=== PATIENT | female | born 1970 | race Hispanic/Latino ===

== ENCOUNTER → 2018-11-06 | Outpatient (CLI) | payer MEDICARE | END | disposition home or self-care (01) | LOC: RAH 14:38 | PROVIDERS: ATTEND Physical Medicine & Rehabilitation | DX: M54.12 Radiculopathy, cervical region (principal) | CPT/HCPCS: 72052 ==

== ENCOUNTER → 2019-05-21 | Outpatient (CLI) | payer MEDICARE | END | disposition home or self-care (01) | LOC: RAH 08:10 | PROVIDERS: ATTEND Physical Medicine & Rehabilitation | DX: M54.12 Radiculopathy, cervical region (principal) | CPT/HCPCS: 72141 ==

== ENCOUNTER → 2020-10-21 | Outpatient (CLI) | payer OTHER, MEDICARE | END | disposition home or self-care (01) | LOC: RAH 07:35 | PROVIDERS: ATTEND Physical Medicine & Rehabilitation | DX: G96.191 Perineural cyst (principal); M54.16 Radiculopathy, lumbar region | CPT/HCPCS: 72148 ==

== ENCOUNTER → 2020-12-23 | Outpatient (CLI) | payer OTHER, MEDICARE ==
[~2020-12-23] VITALS: Ht 165.1 cm; Wt 68.5 kg
[~2020-12-23] MED LIST: CEFAZOLIN SODIUM 1 GM VIAL IVP SCH
[2020-12-23 12:17] LABS: CREATININE 0.8 mg/dL (0.5-1.5); POTASSIUM 4.1 mmol/L (3.5-5.1)
[2020-12-30 09:15] VITALS: BP 99/55
== END ==
LOC: DAH 10:00 → EDSTATUS 01-14 07:30
PROVIDERS: ATTEND Neurological Surgery
DX: Z01.818 Encounter for other preprocedural examination (principal); G56.01 Carpal tunnel syndrome, right upper limb; Z20.822 Contact with and (suspected) exposure to COVID-19
CPT/HCPCS: 36415; 80048; A6260; C9803; U0003

== ENCOUNTER 2021-01-14 05:51 | Day surgery (SDC) | payer OTHER, MEDICARE ==
[2021-01-13 13:36] VITALS: BP 100/68
[~2021-01-14] VITALS: Ht 167.6 cm; Wt 68.0 kg
[2021-01-14] VITALS (11 sets, daily range): BP systolic 88–109; BP diastolic 51–72
[~2021-01-14 05:51] MED LIST changes: +AMIT25TA9 PO; +ASPI-1443 PO; +BUPR1PAT20 TD; +BUTA-256 PO; +CALC0.253 PO; -CEFAZOLIN SODIUM 1 GM VIAL IVP SCH; +CORTSOL OT; +CYCL10TA7 PO; +DIPH1TAB24 PO; +FENO135C4 PO; +FEXO-59 PO; +FLUTICASONE PROPION NASAL; +GLUC1AUT2 SQ; +HYDR-4068 PO; +INSNOV SQ; +INSU300I3 SQ; +LEVO150C4 PO; +METF-446 PO; +MIDO5TAB4 PO; +ONDA-104 PO; +OZEMPIC SQ; +PREG150C46 PO; +SERT-439 PO; +SIMV-46 PO; +TOPI50TA24 PO; +TRAZ150T79 PO; +albuterol sulfate IH
[2021-01-14] MEDS ORDERED: CEFAZOLIN SODIUM 1 GM VIAL ONE (06:09)
[2021-01-14] MEDS ORDERED: LACTATED RINGERS 1000ML 0 ML IV ONE (06:09)
[2021-01-14] MEDS ORDERED: SODIUM CHLORIDE 0.9% 1000ML 1,000 ML IV ONE (06:09)
[2021-01-14] MEDS: CEFAZOLIN SODIUM 1 GM VIAL IVP ONE ×2 (06:53→07:55)
[2021-01-14] MEDS ORDERED: LIDOCAINE HCL MDV 0.5% 50ML VIAL IJ ONE (07:36)
[2021-01-14] MEDS ORDERED: LIDOCAINE PF 100MG/5ML (2%) SYRINGE 5ML ONE (07:37)
[2021-01-14] MEDS ORDERED: FENTANYL CITRATE PF 50 MCG/1 ML 2ML VIAL ONE (07:38)
[2021-01-14] MEDS ORDERED: MIDAZOLAM HCL 1 MG/ML 2ML VIAL ONE (07:38)
[2021-01-14] MEDS ORDERED: PROPOFOL 10 MG/ML 20ML VIAL IV ONE (07:38)
[2021-01-14] MEDS ORDERED: EPHEDRINE SULFATE 50 MG/ML AMPULE ONE (08:00)
== END 2021-01-14 09:35 | disposition home or self-care (01) ==
LOC: DAH 05:51
PROVIDERS: ATTEND Neurological Surgery
DX: G56.01 Carpal tunnel syndrome, right upper limb (principal); Z20.822 Contact with and (suspected) exposure to COVID-19; J44.9 Chronic obstructive pulmonary disease, unspecified; E03.9 Hypothyroidism, unspecified; E11.9 Type 2 diabetes mellitus without complications; Z79.899 Other long term (current) drug therapy; Z90.89 Acquired absence of other organs; Z98.890 Other specified postprocedural states
CPT/HCPCS: 64721; 82948 ×2; 87635; A4215; A4216; A4221; A4222; A4223 ×2; A4606; A4663; C9803; J0690; J2001; J2250; J2704; J3010; J3490 ×2; J7030; J7120

== ENCOUNTER 2021-05-27 05:45 | Day surgery (SDC) | payer OTHER, MEDICARE ==
[2021-05-25 15:13] LABS: CREATININE 0.8 mg/dL (0.5-1.5); POTASSIUM 4.1 mmol/L (3.5-5.1)
[2021-05-26 09:28] VITALS: BP 140/60
[~2021-05-27] VITALS: Ht 165.1 cm; Wt 71.5 kg
[2021-05-27] VITALS (13 sets, daily range): BP systolic 90–127; BP diastolic 57–86
[~2021-05-27 05:45] MED LIST changes: -ASPI-1443 PO; -BUPR1PAT20 TD; -CORTSOL OT; -DIPH1TAB24 PO; +FENT-77 TD; -FEXO-59 PO; -GLUC1AUT2 SQ; -INSNOV SQ; +INSU100I15 SQ; -METF-446 PO; -ONDA-104 PO
[2021-05-27] MEDS: CEFAZOLIN SODIUM 1 GM VIAL IVP SCH ×2 (06:00→07:30)
[2021-05-27] MEDS ORDERED: LACTATED RINGERS 1000ML 1,000 ML IV ONE (06:10)
[2021-05-27] MEDS ORDERED: MIDAZOLAM HCL 1 MG/ML 2ML VIAL ONE (06:35)
[2021-05-27] MEDS ORDERED: FENTANYL CITRATE PF 50 MCG/1 ML 2ML VIAL ONE ×2 (06:35→07:30)
[2021-05-27] MEDS ORDERED: PROPOFOL 10 MG/ML 20ML VIAL IV ONE (07:03)
[2021-05-27] MEDS ORDERED: KETOROLAC 30MG VIAL (30MG/ML) ONE (08:13)
== END 2021-05-27 09:30 | disposition home or self-care (01) ==
LOC: DAH 05:45
PROVIDERS: ATTEND Neurological Surgery
DX: G56.02 Carpal tunnel syndrome, left upper limb (principal); Z20.822 Contact with and (suspected) exposure to COVID-19; E11.9 Type 2 diabetes mellitus without complications; E89.0 Postprocedural hypothyroidism
CPT/HCPCS: 36415; 64721; 80048; 82948 ×2; 87635; A4215; A4221; A4222; A4223; A4663; A6260; C9803; J0690; J1885; J2250; J2704; J3010 ×2; J7120

== ENCOUNTER → 2021-11-12 | Outpatient (CLI) | payer OTHER, MEDICARE ==
[~2021-11-12] MED LIST changes: +CYCL-309 PO; -CYCL10TA7 PO
== END | disposition home or self-care (01) ==
LOC: RAH 12:48
PROVIDERS: ATTEND Physical Medicine & Rehabilitation
DX: M25.421 Effusion, right elbow (principal); M79.89 Other specified soft tissue disorders; M25.521 Pain in right elbow
CPT/HCPCS: 73221

== ENCOUNTER 2022-03-16 05:30 | Day surgery (SDC) | payer OTHER, MEDICARE ==
[2022-03-15 15:26] VITALS: BP 106/73
[2022-03-15 15:34] LABS: BASOPHILS % (AUTO) 0.2 % (0.0-5.0); HEMATOCRIT 36.1 % (36-48); LYMPHOCYTES % (AUTO) 9.2 % (21.0-51.0); MEAN CORPUSCULAR HEMOGLOBIN 30.2 pg (27.0-33.0); MEAN CORPUSCULAR HGB CONC 33.2 g/dL (32.0-36.0); MEAN CORPUSCULAR VOLUME 90.9 fL (79-99); MONOCYTES % (AUTO) 1.2 % (3.0-13.0); NEUTROPHILS % (AUTO) 89.2 % (40.0-77.0); PLATELET COUNT (AUTO) 242 K/uL (130-400); RED BLOOD CELL COUNT(AUTO) 3.97 MIL/uL (4.00-5.50); RED CELL DISTRIBUTION WIDTH 14.5 % (11.0-15.5); WHITE BLOOD COUNT (AUTO) 4.3 K/uL (4.8-10.8)
[2022-03-15 15:40] LABS: POTASSIUM 3.9 mmol/L (3.5-5.1)
[2022-03-16] VITALS (15 sets, daily range): BP systolic 92–130; BP diastolic 53–66
[~2022-03-16] VITALS: Ht 165.1 cm; Wt 65.4 kg
[~2022-03-16 05:30] MED LIST changes: -BUTA-256 PO; -INSU100I15 SQ; -MIDO5TAB4 PO; -albuterol sulfate IH
[2022-03-16] MEDS ORDERED: CEFAZOLIN SODIUM 1 GM VIAL IVP SCH (06:00)
[2022-03-16] MEDS ORDERED: 0.9%NACL 1000ML 1,000 ML IV ONE (06:12)
[2022-03-16] MEDS ORDERED: METF500S9 PO (06:42)
[2022-03-16] MEDS ORDERED: MIDAZOLAM HCL 1 MG/ML 2ML VIAL ONE ×2 (06:51→07:37)
[2022-03-16] MEDS ORDERED: DEXAMETHASONE SOD PHOSPHATE 10MG/ML 1ML VIAL ONE ×2 (06:51→07:51)
[2022-03-16] MEDS ORDERED: SUCCINYLCHOLINE CHLORIDE 20 MG/ML 10 ML VIAL ONE (06:51)
[2022-03-16] MEDS ORDERED: PROPOFOL 10 MG/ML 20ML VIAL IV ONE (06:51)
[2022-03-16] MEDS ORDERED: GLYCOPYRROLATE 1 MG/5 ML SYRINGE ONE (06:51)
[2022-03-16] MEDS ORDERED: LIDOCAINE PF 100MG/5ML (2%) SYRINGE 5ML ONE (06:51)
[2022-03-16] MEDS ORDERED: ROCURONIUM 10MG/1ML SYR 10 MG/ML ML ONE (06:52)
[2022-03-16] MEDS ORDERED: ONDANSETRON 4MG INJ ONE (06:52)
[2022-03-16] MEDS ORDERED: NEOSTIGMINE 5MG/5ML SYR IV ONE (06:52)
[2022-03-16] MEDS ORDERED: FENTANYL CITRATE PF 50 MCG/1 ML 2ML VIAL ONE (06:53)
[2022-03-16] MEDS ORDERED: LIDOCAINE HCL 1% 10 ML VIAL ONE (06:58)
[2022-03-16] MEDS ORDERED: OXYMETAZOLINE HCL SPRAY 15 ML BOTTLE ONE (07:52)
[2022-03-16] MEDS ORDERED: BUPIVACAINE/EPI/PF 0.25% 10ML VIAL IJ ONE (07:56)
[2022-03-16] MEDS ORDERED: PHENYLEPHRINE HCL 10 MG/ML 1ML VIAL IV ONE (08:00)
[2022-03-16] MEDS ORDERED: BUPIVACAINE/EPI/PF 0.25% 30ML VIAL IJ ONE (08:03)
[2022-03-16] MEDS ORDERED: MEPERIDINE-PF 25 MG/ML SYG ONE (08:52)
[2022-03-16] MEDS ORDERED: HYDROMORPHONE 1 MG INJ ONE ×2 (09:18→09:41)
== END 2022-03-16 11:15 | disposition home or self-care (01) ==
LOC: DAH 05:30
PROVIDERS: ATTEND Neurological Surgery
DX: G56.21 Lesion of ulnar nerve, right upper limb (principal); M25.521 Pain in right elbow; E11.9 Type 2 diabetes mellitus without complications; J44.9 Chronic obstructive pulmonary disease, unspecified; F17.200 Nicotine dependence, unspecified, uncomplicated; Z79.890 Hormone replacement therapy; Z79.899 Other long term (current) drug therapy
CPT/HCPCS: 80051; 85025; 87426; 36415; 93005; 64718; 24999; 82948; 71045; A4663; C1713; A4649 ×2; J3010; J0690; J1170 ×2; J1642; J3490 ×4; J1100 ×2; J2710; J0330; J7030; J2001; J2250 ×2; J2704; J2405; J2175; J2370; A4215; A4223; A4222; A4221

== ENCOUNTER → 2025-03-26 | Outpatient (CLI) | payer OTHER, MEDICARE ==
[~2025-03-26] MED LIST changes: +AMIT25TA21 PO; -AMIT25TA9 PO; -LEVO150C4 PO; +LEVO150C5 PO; +METF500S9 PO; -PREG150C46 PO; +PREG150C47 PO; +TOPI-97 PO; -TOPI50TA24 PO
--- NOTE | 2025-03-26 23:25 | HMCIMG ---
EXAM: CR left Knee, 3 views. CLINICAL HISTORY: Left knee pain COMPARISON: None provided. FINDINGS: No acute fracture or aggressive appearing osseous lesion. Joint spaces are within normal limits. There is no joint effusion appreciated. The soft tissues are unremarkable. IMPRESSION: No acute osseous abnormality. /[place]
--- NOTE | 2025-03-26 23:25 | HMCIMG ---
EXAM: CR Right Shoulder, 3 views. CLINICAL HISTORY: Pain in the right shoulder. COMPARISON: None provided. FINDINGS: Mild degenerative changes in the right acromioclavicular joint. The glenohumeral joint appears unremarkable. No acute fracture or aggressive appearing osseous lesion. The soft tissues are unremarkable. Right-sided port catheter with tip in the region of the cavoatrial junction. IMPRESSION: No acute bony changes.Mild degenerative changes in the right acromioclavicular joint. /[place]
== END | disposition home or self-care (01) ==
LOC: RAH 12:36
PROVIDERS: ATTEND Physical Medicine & Rehabilitation
DX: M19.011 Primary osteoarthritis, right shoulder (principal); M25.511 Pain in right shoulder; M25.562 Pain in left knee
CPT/HCPCS: 73030; 73562